=== PATIENT | female | born 1970 | race African-American/Black ===

== ENCOUNTER 2021-11-13 03:57 | Day surgery (SDC) | payer OTHER ==
[2021-11-06 13:06] VITALS: BMI 34.9
[2021-11-13] MEDS ORDERED: LIDOCAINE HCL 2% (20ML MULTI-DOSE VIAL) ONE (07:06)
[2021-11-13] MEDS ORDERED: DEXAMETHASONE SOD PHOSPHATE 4 MG/1 ML VIAL ONE (07:07)
[2021-11-13] MEDS ORDERED: ACETAMINOPHEN INJECTION 100 ML IVPB ONE (07:27)
[2021-11-13] MEDS ORDERED: MIDAZOLAM HCL 2 MG/2 ML SINGLE DOSE VIAL ONE ×2 (07:28→07:50)
[2021-11-13] MEDS ORDERED: KETAMINE HCL 200 MG/20 ML VIAL ONE (07:33)
[2021-11-13] MEDS ORDERED: BUPIVACAINE HCL/PF 0.5% (5MG/ML) 10 ML VIAL IJ ONE ×2 (07:38)
[2021-11-13] MEDS ORDERED: PROPOFOL 20 ML ONE (07:38)
[2021-11-13] MEDS ORDERED: ceFAZolin SODIUM 1 GM VIAL IVPB ONE (07:42)
[2021-11-13] MEDS ORDERED: DEXAMETHASONE SOD PHOSPHATE 4 MG/1 ML VIAL IVPUSH ONE (08:15)
[2021-11-13 08:37] VITALS: TEMP 98.8
[2021-11-13] MEDS ORDERED: oxyCODONE HCL 5 MG TABLET PO PRN (09:20)
[2021-11-13] MEDS ORDERED: FENTANYL CITRATE/PF 50 MCG/ML VIAL IVPUSH PRN (09:20)
[2021-11-13] MEDS ORDERED: ONDANSETRON 4 MG/2 ML VIAL IVPUSH PRN (09:20)
[2021-11-13] MEDS ORDERED: LACTATED RINGERS SOLUTION 1,000 ML IV SCH (09:30)
[2021-11-13 10:53] VITALS: BP 140/74; PULSE 64
== END 2021-11-13 10:20 | disposition home or self-care (01) ==
LOC: JASU-SURG 03:57
PROVIDERS: ATTEND Podiatrist
PROC: 0SRP0JZ Replacement of Right Toe Phalangeal Joint with Synthetic Substitute, Open Approach (ICD-10-PCS; principal; 2021-11-13 07:30)
DX: M20.41 Other hammer toe(s) (acquired), right foot (principal)
CPT/HCPCS: 73630-TC-RT-FY; 88304-TC; 88305-TC; 88311-TC

== ENCOUNTER 2024-09-11 05:31 | Day surgery (SDC) | payer OTHER ==
[2024-09-08 14:00] VITALS: BMI 34.9
[2024-09-11 07:42] VITALS: RESP 16
[2024-09-11] MEDS ORDERED: LIDOCAINE HCL 2% (20ML MULTI-DOSE VIAL) ONE (08:39)
[2024-09-11] MEDS ORDERED: BUPIVACAINE HCL/PF 0.5% (5MG/ML) 10 ML VIAL ONE ×2 (08:39→10:10)
[2024-09-11] MEDS ORDERED: SUCCINYLCHOLINE CHLORIDE 200 MG/10 ML SYRINGE ONE (08:55)
[2024-09-11] MEDS ORDERED: MIDAZOLAM HCL 2 MG/2 ML SINGLE DOSE VIAL ONE (08:55)
[2024-09-11] MEDS ORDERED: PROPOFOL 20 ML ONE ×4 (08:55→10:32)
[2024-09-11] MEDS ORDERED: DEXAMETHASONE SOD PHOSPHATE 10 MG/1 ML VIAL ONE ×2 (10:10)
[2024-09-11] MEDS ORDERED: BACITRACIN ZINC 15 GM TUBE TOPICAL OINTMENT ONE (10:19)
[2024-09-11] MEDS ORDERED: ACETAMINOPHEN 325 MG TABLET (FP) PO PRN (10:39)
[2024-09-11] MEDS ORDERED: LACTATED RINGERS SOLUTION 1,000 ML IV SCH (11:00)
[2024-09-11] MEDS ORDERED: ACETAMINOPHEN INJECTION 100 ML ONE (11:38)
[2024-09-11] MEDS: ACETAMINOPHEN 1000 MG/100 ML BAG IVPB ONE (11:41)
[2024-09-11 13:10] VITALS: BP 135/78; PULSE 83; TEMP 97.7
== END 2024-09-11 13:22 | disposition home or self-care (01) ==
LOC: JASU-SURG 05:31
PROVIDERS: ATTEND Student in an Organized Health Care Education/Training Program
PROC: 0QSP04Z Reposition Left Metatarsal with Internal Fixation Device, Open Approach (ICD-10-PCS; principal; 2024-09-11 09:21)
DX: M20.12 Hallux valgus (acquired), left foot (principal)
CPT/HCPCS: 73630-TC-LT; 76000-TC-FY; 88305-TC; 88311-TC; 94760; 97116-GP; C1713; J0131; J1100